=== PATIENT | male | born 1950 | race Caucasian/White ===

== ENCOUNTER 2016-05-13 09:54 | Day surgery (SDC) | payer OTHER ==
[~2016-05-13] VITALS: Ht 180.3 cm; Wt 109.1 kg
[~2016-05-13 09:54] MED LIST: AEROBID-M AEROSO7 GM; CARDIZEM CD360 MG PO; FLUNISOLIDE NASAL NASAL; LANOXIN125 MCG PO; LISINOPRIL10 MG PO; LOTREL 5/10 MG1 CAP PO; MEDROL DOSE PACK4 MG; METAMUCIL FIB1 WAFER PO; NASONEX NASAL S17 GM NS; NEURONTIN600 MG PO; PROBIOTIC1 EAC1 PO; PROTONIX40 MG PO; QUESTRAN LIG1 PACKET PO; SYNTHROID75 MCG PO; TRANDATE200 MG PO; VIAGRA PO; VIAGRA25 MG PO; VITAMIN D31000 UNIT PO; XARELTO20 MG PO; ZYLOPRIM300 MG PO; ZYRTEC10 MG; ZYRTEC10 MG PO
[2016-05-13] MEDS ORDERED: OXYBUTYNIN CHLOR5 MG PO (10:43)
[2016-05-13] MEDS ORDERED: HYDROCHLOROTH12.5 M1 PO (10:44)
[2016-05-13 10:49] VITALS: BP 146/74; Ht 180.3 cm; Wt 109.1 kg
[2016-05-13 11:17] LABS: BASOPHILS 0.3 % (0.0-2.0); EOSINOPHILS 2.6 % (0-7); HEMATOCRIT 36.9 % (42.0-54.0); HEMOGLOBIN 13.1 g/dL (13.5-17.5); IMMATURE GRANULOCYTES 1.1 % (0-5); MCH 36.6 pg (26.0-34.0); MCHC 35.5 g/dL (31.0-37.0); MCV 103.1 fL (80.0-100.0); MEAN PLATELET VOLUME 9.5 fL (7.4-10.4); MONOCYTES 26.1 % (2-11); NEUTROPHILS 52.9 % (40-80); PLATELET COUNT 131 10x3/uL (130-400); RBC 3.58 10x6/uL (4.20-6.10); RDW 12.6 % (11.5-14.5); WBC 3.5 10x3/uL (4.8-10.8)
[2016-05-13 11:32] LABS: ANION GAP 15.8 mmol/L (8-16); CALCIUM 9.3 mg/dL (8.5-10.1); CARBON DIOXIDE 27.3 mmol/L (21.0-32.0); CREATININE - SERUM 1.1 mg/dL (0.6-1.3); POTASSIUM - SERUM 4.1 mmol/L (3.5-5.1)
--- NOTE | 2016-05-13 14:35 | NUR ---
5697 DC INSTS. REVIEWED VOICED UNDERSTANDING, RELEASED IN WC WITH ESCORT.
--- NOTE | 2016-06-13 09:40 | OP ---
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 Duodenal bulbar polyp, 6 x 6 mm. PROCEDURE: 1. Esophagogastroduodenoscopy with cold endoscopic biopsies. 2. Duodenal bulbar polypectomy, hot. SURGEON: Jorge Bynum MD AIRLINE TICKET AGENT: None. BLOOD LOSS: Minimal. ANESTHESIA: IV sedation. COMPLICATIONS: None. The risks, possible complications and alternatives to procedure were explained to the patient. He elects to proceed. The discussion specifically included, but was not limited to, bleeding requiring emergency reoperation, infection, endoscopic perforation and possible need for additional surveillance procedures in the future. ENDOSCOPIC COURSE: The patient was conveyed to the endoscopy suite electively on 05/13/2016. IV sedation was induced by the anesthesia staff. A bite block was inserted. A gastroscope was inserted into the mouth. It was advanced easily into the hypopharynx. The esophagus was easily intubated as were the stomach and duodenum. In the duodenal bulb, I noted a polyp. This was grasped with the hot biopsy forceps. The bulbar polyp was removed in its entirety. I then performed numerous gastric biopsies in all portions of the stomach. As the patient has been on Xarelto after performing the cold endoscopic biopsies. I then took the hot probe and cauterized any bleeding areas. There was no further bleeding. The endoscope was withdrawn under direct vision. I will see the patient in my office in 2-3 weeks to discuss the results of his biopsies. TRANSINT:[id number] Voice Confirmation ID: [id number] DOCUMENT ID: [id number] OPERATIVE REPORT [id number] AZUCENAJORGE RIZO MD at 0940 CC: JOSE JESUS MD and ESCOBAR URRUTIA MD [id number] DICTATION DATE: 05/13/16 1218 MERCHANT MARINER: 05/13/162052 [facility] 05/13/16 [facility] [address] [place], [place] [id number]
--- NOTE | 2016-06-13 09:40 | HP ---
PATIENT: SAÚL ZENG MEDICAL RECORD: [id number] ACCOUNT: [id number] LOCATION:[facility] : 50 ADMISSION DATE: 05/13/16 HISTORY AND PHYSICAL EXAMINATION CHIEF COMPLAINT: History of gastric lymphoma. HISTORY OF PRESENT ILLNESS: The patient is to undergo a surveillance upper endoscopy with multiple gastric biopsies, which will be random gastric biopsies to make sure that his gastric lymphoma has not recurred. His gastric lymphoma was treated with chemotherapy. He has had no abdominal pain. He has been on Xarelto. He took Xarelto yesterday. His facility manager histology is Dr. Craven. PAST MEDICAL AND SURGICAL HISTORY: History of atrial fibrillation, hypertension, hypothyroidism, on replacement therapy, also history of gout. History of colon resection by Dr. Ko. SOCIAL HISTORY: Nonsmoker. ALLERGIES: No known drug allergies. HOME MEDICATIONS: Digoxin, Cardizem, lisinopril, hydrochlorothiazide, Synthroid, Ditropan and Zyloprim. REVIEW OF SYSTEMS: Negative for diabetes. Negative for renal disease. Negative for hepatitis. Negative for arthritis. REVIEW OF SYSTEMS: Negative other than as is described above. PHYSICAL EXAMINATION: GENERAL: The patient does not appear acutely ill. He does not appear chronically ill. HEENT: No scleral icterus. CARDIOVASCULAR: Regular rhythm. PULMONARY: Nonlabored. ABDOMEN: Nontender. EXTREMITIES: No peripheral cyanosis. IMPRESSION: History of gastric lymphoma. PLAN: Surveillance upper endoscopy with multiple gastric biopsies. TRANSINT:[id number] Voice Confirmation ID: [id number] DOCUMENT ID: [id number] JORGE BYNUM MD at 0940 CC: OJSE JESUS MD, ESCOBAR URRUTIA MD and EDDA CRAVEN M.D.,[id number] DICTATION DATE: 05/13/16 1131 FARM MACHINERY MECHANIC: 05/13/16 1217 [facility] 05/13/16 [place] [id number] [place] [id number]
== END 2016-05-13 13:35 | disposition home or self-care (01) ==
LOC: D.OPS 09:54
PROVIDERS: Anesthesiology
DX: D3A.010 Benign carcinoid tumor of the duodenum (principal); I48.91 Unspecified atrial fibrillation; Z79.01 Long term (current) use of anticoagulants; I10 Essential (primary) hypertension; E03.9 Hypothyroidism, unspecified; M10.9 Gout, unspecified; Z79.899 Other long term (current) drug therapy

== ENCOUNTER 2016-10-28 08:23 | Day surgery (SDC) | payer OTHER ==
[~2016-10-28] VITALS: Ht 180.3 cm; Wt 104.5 kg
[~2016-10-28 08:23] MED LIST changes: +HYDROCHLOROTH12.5 M1 PO; -LISINOPRIL10 MG PO; +OXYBUTYNIN CHLOR5 MG PO; +PRINIVIL20 MG PO
[2016-10-28 09:24] LABS: BASOPHILS 0.2 % (0-2); EOSINOPHILS 0.3 % (0-7); HEMATOCRIT 28.7 % (42.0-54.0); HEMOGLOBIN 10.3 g/dL (13.5-17.5); IMMATURE GRANULOCYTES 1.4 % (0-5); LYMPHOCYTES 14.6 % (15-50); MCH 35.2 pg (26.0-34.0); MCHC 35.9 g/dL (31.0-37.0); MEAN PLATELET VOLUME 8.2 fL (7.4-10.4); MONOCYTES 12.8 % (2-11); NEUTROPHILS 70.7 % (40-80); RBC 2.93 10x6/uL (4.20-6.10); WBC 5.8 10x3/uL (4.8-10.8)
[2016-10-28] MEDS ORDERED: VOLTAREN100 GM TOPICAL (09:26)
[2016-10-28 09:27] LABS: PLATELET COUNT 200 10x3/uL (130-400)
[2016-10-28 09:36] LABS: ANION GAP 17.3 mmol/L (8-16); CALCIUM 9.5 mg/dL (8.5-10.1); CARBON DIOXIDE 26.2 mmol/L (21.0-32.0); CREATININE - SERUM 1.6 mg/dL (0.6-1.3); POTASSIUM - SERUM 3.5 mmol/L (3.5-5.1)
[2016-10-28 09:37] VITALS: BP 134/75; Ht 180.3 cm; Wt 104.5 kg
--- NOTE | 2016-10-28 14:12 | NUR ---
1345-RECBrant FROM GI LAB, DR BYNUM IN TO REPORT FINDINGS TO PATIENT AND . 1400-FULL LIQUIDS SERVED.
--- NOTE | 2016-10-28 17:00 | NUR ---
1445-D/C HOME VIA WHEELCHAIR WITH TO [facility].
--- NOTE | 2016-10-31 11:49 | OP ---
PATIENT NAME: SAÚL ZENG MEDICAL RECORD: [id number] :50 LOCATION:D.OPS ADMISSION DATE: SURGEON: JORGE BYNUM MD DATE OF OPERATION: 10/28/2016 PREOPERATIVE DIAGNOSES: 1. History of gastric lymphoma. 2. History of duodenal carcinoid. 3. Hematochezia. 4. History of colon polyps. 5. History of colon resection. POSTOPERATIVE DIAGNOSES: 1. History of gastric lymphoma. 2. History of duodenal carcinoid. 3. Hematochezia. 4. History of colon polyps. 5. History of colon resection. 6. Polypoid lesion at the junction of the second and third portions of the duodenum. 7. Polypoid lesion, 9 mm, at the duodenal bulb, perhaps regrowth of the carcinoid. 8. Normal-appearing rectal anastomosis. 9. No new colon or rectal polyps. PROCEDURES: 1. Esophagogastroduodenoscopy with multiple gastric biopsies to rule out gastric lymphoma. 2. Duodenal polypectomies times 2. 3. Total colonoscopy to cecum. SURGEON: Jorge Bynum MD. MULTIPLE GAMES DEALER: None. BLOOD LOSS: Minimal. ANESTHESIA: IV sedation. COMPLICATIONS: None. The risks, possible complications and alternatives to the procedure were explained to the patient. He elects to proceed. ENDOSCOPIC COURSE: The patient was conveyed to the endoscopy suite electively on 10/28/2016. A bite block was inserted. A gastroscope was inserted into the mouth. It was advanced easily into the hypopharynx. The esophagus was easily intubated as were the stomach and duodenum. At the junction of the second and third portions of the duodenum, I performed a hot biopsy forceps polypectomy of a polypoid lesion. I then withdrew into the duodenal bulb. Another polypoid lesion was noted and it was removed in its entirety utilizing hot biopsy forceps polypectomy technique. I then withdrew into the stomach. Numerous cold endoscopic biopsies were performed throughout the entire stomach. I noted no evidence of regrowth of the gastric lymphoma. The endoscope was then withdrawn under direct vision. OPERATIVE REPORT [id number] SAÚL ZENG The patient was turned 180 degrees and placed in the Miles position. A digital rectal examination was performed. A colonoscope was inserted through the anus. It was advanced to the anastomosis. I intubated the anastomosis. I irrigated and aspirated extensively. I noted no evidence of any polypoid lesions or masses. The anastomosis did not contain any growth. The endoscope was then withdrawn under direct vision. Our plan for his next colonoscopy to take place in 3 years due to history of colon polyps. I noted no source of bleeding. We are going to wait for the results of the biopsies of the stomach and duodenum before determining when his next surveillance upper endoscopy should take place. TRANSINT:[id number] Voice Confirmation ID: [id number] DOCUMENT ID: [id number] JORGE BYNUM MD at 1149 CC: JOSE JESUS MD and ESCOBAR URRUTIA MD [id number] DICTATION DATE: 10/28/16 1346 COMPOSITION PROFESSOR: 10/28/16 1514 [facility] 10/28/16 [place] [address] [place] [address]
--- NOTE | 2016-10-31 11:49 | HP ---
PATIENT: SAÚL ZENG MEDICAL RECORD: [id number] ACCOUNT: [id number] LOCATION:[facility]ernardo[facility] : 50 ADMISSION DATE: 10/28/16 HISTORY AND PHYSICAL EXAMINATION PREOPERATIVE DIAGNOSIS: History of gastric lymphoma. HISTORY OF PRESENT ILLNESS: The patient has a history of gastric lymphoma. He is to undergo surveillance upper endoscopies with multiple biopsies to ensure there has not been a recurrence of the gastric lymphoma. 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 He has had a history of colon polyps. He has been having some rectal bleeding as well. He is to undergo EGD and colonoscopy. The risks, possible complications and alternatives to procedure were explained to the patient. He elects to proceed. PAST MEDICAL AND SURGICAL HISTORY: He had a URI 2 weeks ago, hypertension, atrial fibrillation, history of gastric lymphoma and sleep apnea. HOME MEDICINES: Include lisinopril, hydrochlorothiazide, Synthroid, Zyrtec, Xarelto, Protonix and Cardizem. PHYSICAL EXAMINATION: GENERAL: The patient does not appear acutely ill. He does not appear chronically ill. VITAL SIGNS: Reviewed. HEAD: External ears appear normal. EYES: Extraocular movements are intact. NECK: Trachea is midline. CHEST: No intercostal retractions. PULMONARY: Nonlabored, no stridor. ABDOMEN: Nontender. IMPRESSION: 1. History of gastric lymphoma. 2. History of carcinoid tumor of the duodenum. 3. Hematochezia. 4. History of colon polyps. PLAN: EGD and colonoscopy. TRANSINT:[id number] Voice Confirmation ID: [id number] DOCUMENT ID: [id number] JORGE BYNUM MD at 1149 CC: JOSE JESUS MD and ESCOBAR URRUTIA MD [id number] DICTATION DATE: 10/28/16 1302 MOUNTER SAXOPHONES: 10/28/[address] [facility] 10/28/16 [place] [id number] [place] [address]
== END 2016-10-28 14:45 | disposition home or self-care (01) ==
LOC: D.OPS 08:23
PROVIDERS: Anesthesiology
DX: K31.7 Polyp of stomach and duodenum (principal); K29.50 Unspecified chronic gastritis without bleeding; K29.80 Duodenitis without bleeding; Z85.72 Personal history of non-Hodgkin lymphomas; Z86.010 Personal history of colon polyps; Z90.49 Acquired absence of other specified parts of digestive tract; I10 Essential (primary) hypertension; I48.91 Unspecified atrial fibrillation; G47.30 Sleep apnea, unspecified; Z79.01 Long term (current) use of anticoagulants; Z79.899 Other long term (current) drug therapy; Z01.812 Encounter for preprocedural laboratory examination

== ENCOUNTER 2016-12-18 07:22 | Outpatient (CLI) | payer OTHER ==
[~2016-12-18 07:22] MED LIST changes: +VOLTAREN100 GM TOPICAL
[2016-12-18 08:19] VITALS: BP 113/74; BMI 31.8
--- NOTE | 2016-12-18 14:48 | NUR ---
LEFT CHEST INFUSAPORT FLUSHED WITH NS AND HEPARIN. PORT DEACCESSED, PT TOLERATED. MCCARTHY NEEDLE INTACT. SCANT BLOOD AT SITE AFTER NEEDLE REMOVAL, BLOTTED, NO DRESSING NEEDED.
== END 2016-12-18 15:00 | disposition home or self-care (01) ==
LOC: D.OPS 07:22
DX: D64.9 Anemia, unspecified (principal)

== ENCOUNTER 2017-06-16 05:43 | Day surgery (SDC) | payer OTHER ==
[~2017-06-16] VITALS: Ht 180.3 cm; Wt 101.4 kg
--- NOTE | ~2017-06-16 | OP ---
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 PROCEDURE: Esophagogastroduodenoscopy with multiple random gastric biopsies. SURGEON: Jorge Bynum MD MARBLE RUBBER: None. BLOOD LOSS: Minimal. ANESTHESIA: IV sedation. COMPLICATIONS: None. The risks, possible complications, and alternatives to the procedure were explained to the patient. He elects to proceed. ENDOSCOPIC COURSE: The patient was conveyed to the endoscopy suite electively on 06/16/2017. IV sedation was induced by the anesthesia staff. A bite block was inserted. A gastroscope was inserted into the mouth. It was advanced easily into the hypopharynx. The esophagus was easily intubated as were the stomach and duodenum. Upon withdrawal, retroflexed and angulus views were obtained. Multiple random gastric biopsies were obtained in all areas of the stomach. The endoscope was then withdrawn under direct vision. I will see him in my office in 2-3 weeks. I will plan for his next surveillance upper endoscopy with biopsies to take place in 6 months. TRANSINT:[id number] Voice Confirmation ID: [id number] DOCUMENT ID: [id number] JORGE BYNUM MD at 1518 CC: JOSE JESUS MD, ESCOBAR URRUTIA MD and EDDA WILLIAMSON [id number] DICTATION DATE: 06/16/17 1044 TIE MAKER: 06/16/17 1058 [facility] 06/16/17 [place] [address] [place] [address]
--- NOTE | ~2017-06-16 | HP ---
PATIENT: SAÚL ZENG MEDICAL RECORD: [id number] ACCOUNT: [id number] LOCATION:[facility] : 50 ADMISSION DATE: 06/16/17 HISTORY AND PHYSICAL EXAMINATION CHIEF COMPLAINT: History of gastric lymphoma. HISTORY OF PRESENT ILLNESS: The patient has a history of gastric lymphoma. He is here for surveillance upper endoscopies. His oncologist is Dr. Jesus. He also has a history of colon polyps. He is too early for surveillance colonoscopy. We are performing upper endoscopies with biopsies every 6 months due to his history of gastric lymphoma. PAST MEDICAL AND SURGICAL HISTORY: Hypertension; atrial fibrillation; history of gastric lymphoma; history of sleep apnea; renal disease; hypothyroidism, on replacement therapy; allergic rhinitis; and gout. HOME MEDICATIONS: He is no longer on Xarelto. Cardizem, hydrochlorothiazide, digoxin, lisinopril, Protonix, Synthroid, allopurinol, and Zyrtec. ALLERGIES: No known drug allergies. PHYSICAL EXAMINATION: GENERAL: The patient does not appear acutely ill. He does not appear chronically ill. VITAL SIGNS: Reviewed. EARS: External ears appear normal. EYES: Extraocular movements are intact. NECK: Trachea is midline. CHEST: No intercostal retractions. PULMONARY: Nonlabored, no stridor. ABDOMEN: No peritonitis with movement. IMPRESSION: History of gastric lymphoma. PLAN: Will be surveillance upper endoscopy with biopsies. TRANSINT:[id number] Voice Confirmation ID: [id number] DOCUMENT ID: [id number] JORGE BYNUM MD at 1518 CC: JOSE JESUS MD and EDDA WILLIAMSON [id number] DICTATION DATE: 06/16/17 1014 SCIENTIST/ENGINEER: 06/16/17 1036 [facility] 06/16/17 [place] [id number]
[2017-06-16 06:15] LABS: HEMATOCRIT 38.1 % (42.0-54.0); MCH 35.8 pg (26.0-34.0); MCHC 36.7 g/dL (31.0-37.0); MCV 97.4 fL (80.0-100.0); MEAN PLATELET VOLUME 8.5 fL (7.4-10.4); RBC 3.91 10x6/uL (4.20-6.10); RDW 14.3 % (11.5-14.5); WBC 3.6 10x3/uL (4.8-10.8)
[2017-06-16 07:29] VITALS: BP 134/88; Ht 180.3 cm; Wt 101.4 kg
== END 2017-06-16 11:27 | disposition home or self-care (01) ==
LOC: D.OPS 05:43
PROVIDERS: Anesthesiology
DX: Z85.72 Personal history of non-Hodgkin lymphomas (principal); Z85.9 Personal history of malignant neoplasm, unspecified; Z01.812 Encounter for preprocedural laboratory examination; I10 Essential (primary) hypertension; E03.9 Hypothyroidism, unspecified; I48.91 Unspecified atrial fibrillation

== ENCOUNTER 2017-12-08 08:30 | Day surgery (SDC) | payer OTHER ==
[~2017-12-08] VITALS: Ht 180.3 cm; Wt 95.5 kg
--- NOTE | ~2017-12-08 | OP ---
PATIENT NAME: SAÚL ZENG MEDICAL RECORD: [id number] :50 LOCATION:D.[facility] ADMISSION DATE: SURGEON: JORGE BYNUM MD DATE OF OPERATION: 12/08/2017 PREOPERATIVE DIAGNOSES: History of gastric lymphoma. POSTOPERATIVE DIAGNOSES: History of gastric lymphoma. PROCEDURE: EGD with multiple random gastric biopsies as well as distal esophageal biopsies to rule out Blair's. SURGEON: Jorge Bynum MD OFFAL SEPARATOR: None. BLOOD LOSS: Minimal. ANESTHESIA: IV sedation. COMPLICATIONS: None. The risks, possible complications, and alternatives to procedure were explained to the patient. He elects to proceed. OPERATIVE COURSE: The patient was conveyed to endoscopy suite electively on 12/08/2017. A bite block was inserted. The IV sedation was induced by the anesthesia staff. A gastroscope was inserted into the mouth. It was advanced easily into the hypopharynx. The esophagus was easily intubated as were the stomach and duodenum. Upon withdrawal, retroflexed and angulus views were obtained. Antral biopsies were obtained. Multiple random gastric biopsies were obtained in the cardia, fundus as well as the antrum. Distal esophageal biopsies were obtained as well. The endoscope was then withdrawn under direct vision. I will see the patient in my office in 2-3 weeks. He was to have a colonoscopy today as well, but was not prepped for it. I will have him call Dr. Jesus and see when he would like Mr. Zeng to have his next surveillance upper endoscopy. TRANSINT:[id number] Voice Confirmation ID: [id number] DOCUMENT ID: [id number] JORGE BYNUM MD at 1327 CC: JOSE JESUS MD and ESCOBAR URRUTIA MD [id number] DICTATION DATE: 12/08/17 1158 CASINO FLOOR RUNNER: 12/08/17 1238 [facility] 12/08/17 [place] [place] [address]
--- NOTE | ~2017-12-08 | HP ---
PATIENT: SAÚL ZENG MEDICAL RECORD: [id number] ACCOUNT: [id number] LOCATION:.[facility] : 50 ADMISSION DATE: 12/08/17 PCP: ESCOBAR URRUTIA MD HISTORY AND PHYSICAL EXAMINATION CHIEF COMPLAINT: History of gastric lymphoma. HISTORY OF PRESENT ILLNESS: The patient had a history of gastric lymphoma. He is here for EGD with multiple gastric biopsies. The risks, possible complications and alternatives to the procedure were explained to the patient. He elects to proceed. ALLERGIES: No known drug allergies. MEDICATIONS: Please see the nursing list. PAST MEDICAL AND SURGICAL HISTORY: Hypertension, hypothyroidism on replacement therapy, history of gastric lymphoma, history of sinus surgery, history of colon resection, history of cholecystectomy, history of partial knee replacements bilaterally. He is somewhat hard of hearing. PHYSICAL EXAMINATION: GENERAL: The patient does not appear acutely ill. He does not appear chronically ill. VITAL SIGNS: Reviewed. EARS: External ears appear normal. EYES: Extraocular movements are intact. NECK: Trachea is midline. CHEST: No intercostal retractions. PULMONARY: Nonlabored, no stridor. IMPRESSION: History of gastric lymphoma. PLAN: EGD with biopsies. TRANSINT:[id number] Voice Confirmation ID: [id number] DOCUMENT ID: [id number] JORGE BYNUM MD at 1201 CC: JOSE JESUS MD and ESCOBAR URRUTIA MD [id number] DICTATION DATE: 12/08/17 1131 MECHATRONICS TECHNOLOGIST: 12/08/17 1140 [facility] [address] [place] [address]
[2017-12-08 08:51] LABS: BASOPHILS 0.3 % (0-2); EOSINOPHILS 3.5 % (0-7); HEMATOCRIT 39.7 % (42.0-54.0); HEMOGLOBIN 14.5 g/dL (13.5-17.5); IMMATURE GRANULOCYTES 0.9 % (0-5); LYMPHOCYTES 20.7 % (15-50); MCH 37.4 pg (26.0-34.0); MCHC 36.5 g/dL (31.0-37.0); MCV 102.3 fL (80.0-100.0); MEAN PLATELET VOLUME 9.2 fL (7.4-10.4); MONOCYTES 18.4 % (2-11); NEUTROPHILS 56.2 % (40-80); RBC 3.88 10x6/uL (4.20-6.10); RDW 12.7 % (11.5-14.5); WBC 3.5 10x3/uL (4.8-10.8)
[2017-12-08 08:55] LABS: PLATELET COUNT 146 10x3/uL (130-400)
[2017-12-08 09:01] LABS: CALC OSMOLALITY 265 mosm/kg (275-300); CALCIUM 9.7 mg/dL (8.5-10.1); CARBON DIOXIDE 28.5 mmol/L (21.0-32.0); CHLORIDE - SERUM 96 mmol/L (98-107); GLUCOSE 86 mg/dL (74-106); POTASSIUM - SERUM 4.2 mmol/L (3.5-5.1); SODIUM 134 mmol/L (136-145); UREA NITROGEN 11 mg/dL (7-18); eGFR NON AFRICAN AMERICAN 79 mL/min (90-120)
[2017-12-08] MEDS ORDERED: BAYER CHEWABLE81 MG PO (09:24)
[2017-12-08] MEDS ORDERED: MULTI-DAY VITAM1 TAB PO (09:25)
[2017-12-08] MEDS ORDERED: NORITATE60 GM TP (09:25)
[2017-12-08] MEDS ORDERED: OXYBUTYNIN CHLOR5 MG PO (09:25)
[2017-12-08] MEDS ORDERED: VIBRAMYCIN 100100 MG PO (09:26)
[2017-12-08 09:34] VITALS: BP 143/108; Ht 180.3 cm; Wt 95.5 kg
== END 2017-12-08 13:04 | disposition home or self-care (01) ==
LOC: D.OPS 08:30
PROVIDERS: Anesthesiology
DX: Z85.72 Personal history of non-Hodgkin lymphomas (principal); I10 Essential (primary) hypertension; E03.9 Hypothyroidism, unspecified; Z96.653 Presence of artificial knee joint, bilateral; Z01.812 Encounter for preprocedural laboratory examination

== ENCOUNTER 2018-06-08 10:47 | Day surgery (SDC) | payer OTHER ==
[~2018-06-08] VITALS: Ht 180.3 cm; Wt 95.5 kg
[~2018-06-08 10:47] MED LIST changes: +BAYER CHEWABLE81 MG PO; +MULTI-DAY VITAM1 TAB PO; +NORITATE60 GM TP; +VIBRAMYCIN 100100 MG PO
[2018-06-08 11:21] LABS: HEMATOCRIT 34.5 % (42.0-54.0); HEMOGLOBIN 11.6 g/dL (13.5-17.5); MCH 34.1 pg (26.0-34.0); MCHC 33.6 g/dL (31.0-37.0); MCV 101.5 fL (80.0-100.0); MEAN PLATELET VOLUME 8.7 fL (7.4-10.4); RBC 3.4 10x6/uL (4.20-6.10); RDW 13.3 % (11.5-14.5); WBC 4.8 10x3/uL (4.8-10.8)
[2018-06-08 11:47] LABS: APTT 28.3 SECONDS (22.8-39.4); INR 1.04 (0.85-1.17); PROTIME 13.1 SECONDS (11.6-15.0)
[2018-06-08] MEDS ORDERED: ELIQUIS5 MG PO (12:09)
[2018-06-08 12:14] VITALS: BP 140/86; Ht 180.3 cm; Wt 95.5 kg
--- NOTE | 2018-06-08 14:30 | NUR ---
PT IV REMOVED AT THIS TIME, INTACT, NO REDNESS OR SWELLING NOTED AT SITE. PT DC INSTRUCTIONS REVIEWED AT THIS TIME, PT VERBALIED UNDERSTANDING.
--- NOTE | 2018-06-08 14:47 | NUR ---
PT LEAVING OPS AT THIS TIME, VSS NAD NOTED.
--- NOTE | 2018-06-09 14:50 | OP ---
PATIENT NAME: SAÚL ZENG MEDICAL RECORD: [id number] :50 LOCATION:.[facility] ADMISSION DATE: SURGEON: JORGE BYNUM MD DATE OF OPERATION: 06/08/2018 PREOPERATIVE DIAGNOSIS: History of gastric lymphoma, in need of surveillance. POSTOPERATIVE DIAGNOSES: 1. History of gastric lymphoma, in need of surveillance. 2. Prepyloric gastritis, moderate. PROCEDURE: Esophagogastroduodenoscopy with multiple gastric biopsies. SURGEON: Jorge Bynum MD HYDRAULIC ENGINEER: None. BLOOD LOSS: Minimal. ANESTHESIA: IV sedation. COMPLICATIONS: None. Due to the fact that the patient is currently on Eliquis, I performed hot biopsies in order to prevent bleeding from occurring. Upon entering the stomach, there were some flecks of blood. I am uncertain where the bleeding was coming from. He states he has got another month's worth of Eliquis to take. DESCRIPTION OF PROCEDURE: The patient was conveyed to the endoscopy suite electively on 06/08/2018. IV sedation was induced by the anesthesia staff. A bite block was inserted. A gastroscope was inserted into the mouth. It was advanced easily into the hypopharynx. The esophagus was easily intubated as were the stomach and the duodenum. Upon withdrawal, retroflexed and angulus views were obtained. Multiple random hot biopsies were performed. The endoscope was then withdrawn under direct vision. I will see the patient in my office in 2-3 weeks. I will plan for his next surveillance gastroscopy to take place in 6 months. TRANSINT:[id number] Voice Confirmation ID: [id number] DOCUMENT ID: [id number] JORGE BYNUM MD at 1450 CC: JOSE JESUS MD and ESCOBAR URRUTIA MD [phone] DICTATION DATE: 06/08/18 1358 LINER ASSEMBLER: 06/08/18 2856 [facility] 06/08/18 [facility] [address] [place] [id number]
--- NOTE | 2018-06-09 14:51 | HP ---
PATIENT: SAÚL ZENG MEDICAL RECORD: [id number] ACCOUNT: [id number] LOCATION:[facility] : 50 ADMISSION DATE: 06/08/18 PCP: ESCOBAR URRUTIA MD HISTORY AND PHYSICAL EXAMINATION CHIEF COMPLAINT: History of gastric lymphoma. HISTORY OF PRESENT ILLNESS: The patient is here to undergo random gastric biopsies due to history of gastric lymphoma. ALLERGIES: No known drug allergies. HOME MEDICATIONS: Please see the nursing list. The patient is currently on Eliquis. SOCIAL HISTORY: Nonsmoker. 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 PHYSICAL EXAMINATION: GENERAL: The patient does not appear acutely ill. He does not appear chronically ill. VITAL SIGNS: Reviewed. EARS: External ears appear normal. EYES: Extraocular movements are intact. NECK: Trachea is midline. CHEST: No intercostal retractions. PULMONARY: Nonlabored, no stridor. IMPRESSION: History of gastric lymphoma, on Eliquis. PLAN: Multiple gastric biopsies. TRANSINT:[id number] Voice Confirmation ID: [id number] DOCUMENT ID: [id number] cc: [facility] Smith MD at 1451 CC: JOSE JESUS MD and ESCOBAR URRUTIA MD [phone] DICTATION DATE: 06/08/18 1331 MAGAZINE GRINDER LOADER: 06/08/[address] [facility] 06/08/18 [facility] [address] [place] [id number]
== END 2018-06-08 14:47 | disposition home or self-care (01) ==
LOC: D.OPS 10:47
PROVIDERS: Anesthesiology; ATTEND Surgery
DX: K29.50 Unspecified chronic gastritis without bleeding (principal); Z79.01 Long term (current) use of anticoagulants; Z85.72 Personal history of non-Hodgkin lymphomas; Z01.812 Encounter for preprocedural laboratory examination

== ENCOUNTER 2018-06-15 10:08 | Inpatient (IN) | payer OTHER ==
[~2018-06-15] VITALS: Ht 180.3 cm; Wt 99.8 kg
[2018-06-15] VITALS (16 sets, daily range): BP systolic 96–139; BP diastolic 57–93; BMI 30.7
[~2018-06-15 10:08] MED LIST changes: +ELIQUIS5 MG PO
[2018-06-15] MEDS ORDERED: PREVALITE POWD231 GM PO (10:24)
[2018-06-15] MEDS ORDERED: COREG6.25 MG PO (10:24)
[2018-06-15] MEDS ORDERED: FERROUS SULFAT325 MG PO (10:25)
[2018-06-15] MEDS ORDERED: LIPITOR40 MG PO (10:26)
[2018-06-15] MEDS ORDERED: VIBRAMYCIN 100100 MG PO (10:27)
[2018-06-15] MEDS ORDERED: MYRBETRIQ25 MG PO (10:28)
[2018-06-15] MEDS ORDERED: ZYRTEC10 MG PO (10:30)
[2018-06-15] MEDS ORDERED: FLUTICASONE PRO16 GM NASAL (10:30)
[2018-06-15] MEDS ORDERED: CYCLOBENZAPRINE10 MG PO (10:30)
[2018-06-15 11:46] LABS: ALBUMIN 3.1 g/dL (3.4-5.0); ALKALINE PHOSPHATASE 50 U/L (46-116); ALT (SGPT) 21 U/L (10-68); BILIRUBIN - TOTAL 0.27 mg/dL (0.2-1.3); CALC OSMOLALITY 299 mosm/kg (275-300); CALCIUM 9.1 mg/dL (8.5-10.1); CHLORIDE - SERUM 103 mmol/L (98-107); CREATININE - SERUM 0.9 mg/dL (0.6-1.3); POTASSIUM - SERUM 4.4 mmol/L (3.5-5.1); PROTEIN - SERUM 5.6 g/dL (6.4-8.2); SODIUM 139 mmol/L (136-145); UREA NITROGEN 65 mg/dL (7-18); eGFR NON AFRICAN AMERICAN 89 mL/min (90-120)
[2018-06-15 11:47] LABS: GLUCOSE 150 mg/dL (74-106)
[2018-06-15 11:50] LABS: BASOPHILS 0.2 % (0-2); EOSINOPHILS 0.7 % (0-7); IMMATURE GRANULOCYTES 0.4 % (0-5); LYMPHOCYTES 9.5 % (15-50); MCH 33.7 pg (26.0-34.0); MCHC 33.5 g/dL (31.0-37.0); MCV 100.6 fL (80.0-100.0); MEAN PLATELET VOLUME 8.9 fL (7.4-10.4); MONOCYTES 11.6 % (2-11); NEUTROPHILS 77.6 % (40-80); PLATELET COUNT 172 10x3/uL (130-400); RDW 13.4 % (11.5-14.5); WBC 5.6 10x3/uL (4.8-10.8)
[2018-06-15 11:52] LABS: APTT 29.4 SECONDS (22.8-39.4); HEMATOCRIT 18.2 % (42.0-54.0); HEMOGLOBIN 6.1 g/dL (13.5-17.5); INR 1.28 (0.85-1.17); PROTIME 15.4 SECONDS (11.6-15.0); RBC 1.81 10x6/uL (4.20-6.10)
[2018-06-15 11:58] LABS: CKMB 1.6 U/L (0.0-3.6); CREATINE KINASE 85 UL (21-232); MAGNESIUM - SERUM 1.5 mg/dL (1.8-2.4); TROPONIN-I 0.038 ng/mL (0.000-0.060)
[2018-06-15 14:12] LABS: APPEARANCE CLEAR (CLEAR); BILIRUBIN NEGATIVE (NEGATIVE); COLOR YELLOW (YELLOW); GLUCOSE NEGATIVE (NEGATIVE); KETONE NEGATIVE (NEGATIVE); NITRITE NEGATIVE (NEGATIVE); PROTEIN NEGATIVE (NEGATIVE); UROBILINOGEN NORMAL (NORMAL)
[2018-06-15] MEDS ORDERED: COREG12.5 MG PO (19:11)
[2018-06-15] MEDS ORDERED: ZYLOPRIM100 MG PO (19:13)
[2018-06-15 19:50] LABS: HEMATOCRIT 23.4 % (42.0-54.0); HEMOGLOBIN 7.9 g/dL (13.5-17.5)
[2018-06-16] VITALS (17 sets, daily range): BP systolic 94–141; BP diastolic 58–88; Ht 180.3 cm; Wt 99.8 kg
[2018-06-16 01:25] LABS: HEMATOCRIT 25.4 % (42.0-54.0); HEMOGLOBIN 8.8 g/dL (13.5-17.5)
[2018-06-16 05:32] LABS: BASOPHILS 0.5 % (0-2); EOSINOPHILS 3.3 % (0-7); HEMATOCRIT 27.6 % (42.0-54.0); HEMOGLOBIN 9.4 g/dL (13.5-17.5); IMMATURE GRANULOCYTES 0.5 % (0-5); LYMPHOCYTES 18.4 % (15-50); MCH 31.5 pg (26.0-34.0); MCHC 34.1 g/dL (31.0-37.0); MEAN PLATELET VOLUME 8.6 fL (7.4-10.4); MONOCYTES 14.8 % (2-11); NEUTROPHILS 62.5 % (40-80); RDW 17.5 % (11.5-14.5); WBC 4.3 10x3/uL (4.8-10.8)
[2018-06-16 05:36] LABS: MCV 92.6 fL (80.0-100.0); PLATELET COUNT 127 10x3/uL (130-400); RBC 2.98 10x6/uL (4.20-6.10)
[2018-06-16 05:43] LABS: ALBUMIN 2.9 g/dL (3.4-5.0); ALKALINE PHOSPHATASE 51 U/L (46-116); ALT (SGPT) 20 U/L (10-68); BILIRUBIN - TOTAL 1.26 mg/dL (0.2-1.3); CALCIUM 8.2 mg/dL (8.5-10.1); CARBON DIOXIDE 28.2 mmol/L (21.0-32.0); CHLORIDE - SERUM 104 mmol/L (98-107); POTASSIUM - SERUM 3.9 mmol/L (3.5-5.1); PROTEIN - SERUM 5.5 g/dL (6.4-8.2); SODIUM 140 mmol/L (136-145); eGFR NON AFRICAN AMERICAN 79 mL/min (90-120)
[2018-06-16 05:54] LABS: CALC OSMOLALITY 289 mosm/kg (275-300); GLUCOSE 94 mg/dL (74-106); UREA NITROGEN 42 mg/dL (7-18)
--- NOTE | 2018-06-16 08:28 | HP ---
PATIENT: SAÚL ZENG MEDICAL RECORD: [id number] ACCOUNT: [id number] LOCATION:[facility] D2301 : 50 ADMISSION DATE: 06/15/18 PCP: ESCOBAR URRUTIA MD HISTORY AND PHYSICAL EXAMINATION DATE OF ADMISSION: 06/15/2018 CHIEF COMPLAINT: Syncope and melena. HISTORY OF PRESENT ILLNESS: This is a 68-year-old white male who had EGD and gastric biopsies by Dr. Brito a week ago from today. He has been on Eliquis since he had 2-vessel CABG and closure of left atrial appendage with a clip in March by Dr. Malagon in [place]. He is hopefully soon to get off of the Eliquis. The patient followed instructions prior to and post-procedure. He stopped the Eliquis 2 days before and did not take it for 2 days after the procedure. He said, at about 3 o'clock yesterday afternoon, he had a black stool and felt like he was going to pass out then. He caught himself and did okay. He had another couple of black stools last night. He had another one this morning and woke up on the floor. He came into the ER to be evaluated. His hemoglobin then was 6.1 and hematocrit 18. He is admitted for acute blood loss anemia, most likely post-procedure. PAST MEDICAL HISTORY: He has arthritis; hypertension; hyperlipidemia; hypothyroidism; history of prostate cancer and MALT lymphoma, followed by Dr. Ashraf, and he gets q. [address] Brito. He has paroxysmal atrial fibrillation and has coronary artery disease, followed by Dr. Craven. PAST SURGICAL HISTORY: He has had prostatectomy, cholecystectomy, and partial colectomy. He had a 2-vessel CABG, closure of left atrial appendage, and radiofrequency ablation of pathways for atrial fibrillation done on 03/24/[address] Malagon in [place]. ALLERGIES: None known. HOME MEDICATIONS: Include cetirizine 10 mg once a day, doxycycline 100 mg once a day for rosacea, Flexeril 10 mg p.r.n. muscle spasm, Eliquis 5 mg twice a day, iron sulfate 325 mg once a day, atorvastatin 40 mg once a day, carvedilol 12.5 mg twice a day, aspirin 81 mg once a day, Flonase nasal spray p.r.n., levothyroxine 75 mcg once a day, metronidazole cream apply p.r.n. rosacea, Myrbetriq 25 mg once a day for overactive bladder, vitamin D3 1000 units once a day, multivitamin once a day, and allopurinol 100 mg once a day. HABITS: Never smoked. Alcohol, he states he stopped drinking before his heart surgery. He admits to drinking some wine in the last couple of weeks. No illicit drug use. FAMILY HISTORY: Unknown. SOCIAL HISTORY: He is . He runs his own business. REVIEW OF SYSTEMS: GENERAL: No major weight changes. HEENT: He has occasional allergy problems. RESPIRATORY: No history of asthma or emphysema. CARDIAC: He has coronary artery disease, paroxysmal atrial fibrillation, recent HISTORY AND PHYSICAL [id number] SAÚL ZENG CABG, closure of left atrial appendage, and radiofrequency ablation of pathways for AFib. GASTROINTESTINAL: He has had history of MALT lymphoma, followed by Dr. Ashraf, and gets q. [address] Brito. He has a history of polyp in colon. He has had partial colectomy. GENITOURINARY: History of prostate cancer, status post prostatectomy. MUSCULOSKELETAL: Arthritic aches and pains. NEUROLOGIC: No migraines or seizures. PSYCHIATRIC: No melancholia or depression. PHYSICAL EXAMINATION: VITAL SIGNS: Temperature is afebrile, heart rate 84, respirations 16, blood pressure 129/77, and O2 sat 97%. GENERAL: He is awake and alert. He does not appear to be in acute distress at this time. HEENT: Grossly within normal limits. NECK: Supple. No JVD or bruit. HEART: Regular rate and rhythm. No murmur. LUNGS: Fairly clear. ABDOMEN: Soft, flat, and nontender. RECTAL: Not done in the ED. He had grossly heme-positive stool. EXTREMITIES: No edema. NEUROLOGIC: Intact. LABORATORY DATA: Urinalysis is normal. CBC with white count of 5600, hemoglobin 6.1, hematocrit 18.2, and MCV 100.6. INR 1.28. Basic metabolic panel is okay except BUN is 65, creatinine 0.9, and magnesium 1.5. Liver functions are all okay. DIAGNOSTIC DATA: EKG; normal sinus rhythm, rate 91. Chest x-ray shows no acute problems. CAT scan of the cervical spine shows degenerative changes. CAT scan of the head shows no acute problems. ASSESSMENT: 1. Acute blood loss anemia. 2. Long-term use of blood thinners. 3. History of MALT lymphoma, status post EGD and biopsy one week ago by Dr. Brito. 4. History of coronary artery disease with CABG on 03/24/2018. PLAN: He has been given a total of 2 units of packed red blood cells. He will have another CBC checked soon and we will transfuse per parameters. Dr. Brito has been consulted and has seen the patient. We will monitor overnight in the ICU. Further procedures as warranted. TRANSINT:[id number] Voice Confirmation ID: [id number] DOCUMENT ID: [id number] HISTORY AND PHYSICAL [id number] SAÚL ZENG WILLIAM MD at 0828 CC: [id number] DICTATION DATE: 06/15/181925 GIS SCIENTIST: 06/15/182017 ADM IN [facility] [address] [place] [address]
[2018-06-16 13:05] LABS: HEMATOCRIT 30.7 % (42.0-54.0); HEMOGLOBIN 10.3 g/dL (13.5-17.5)
--- NOTE | 2018-06-16 16:54 | MORECARE ---
CASE MANAGEMENT DISCHARGE SUMMARY PATIENT: SAÚL ZENG UNIT: [id number] ADM DATE: 06/15/18 AGE: 68 : 50 SEX: M ROOM/BED: D.2301 AUTHOR: SUMIT BARKLEY PHYSICIAN: REFERRING PHYSICIAN: ESCOBAR URRUTIA MD DATE OF SERVICE: 06/16/18 Discharge Plan Patient Name: SAÚL ZENG Facility: [facility]:[place] : 1950 Planned Disposition: Home Anticipated Discharge Date: Discharge Date: Expected LOS: Initial Reviewer: [email or web address] Initial Review Date: 06/16/2018 Generated: 06/16/18 5:54 pm Patient Name: SAÚL ZENG Page 61810 at 1654 All edits/amendments must be made on the electronic document DICTATION DATE: 06/16/181653 WASTE RECLAIMER: MACEY 06/16/181653 RPT#: [id number] DC DATE: STATUS: ADM IN [facility] [address] [place] [address] END OF REPORT
--- NOTE | 2018-06-16 17:03 | MORECARE ---
CASE MANAGEMENT DISCHARGE SUMMARY PATIENT: SAÚL ZENG UNIT: [id number] ADM DATE: 06/15/18 AGE: 68 : 50 SEX: M ROOM/BED: D.2301 AUTHOR: SUMIT BARKLEY PHYSICIAN: REFERRING PHYSICIAN: ESCOBAR URRUTIA MD DATE OF SERVICE: 06/16/18 Discharge Plan Patient Name: SAÚL ZENG Facility: [facility]:[place] : 1950 Planned Disposition: Home Anticipated Discharge Date: Discharge Date: Expected LOS: Initial Reviewer: [email or web address] Initial Review Date: 06/16/2018 Generated: 06/16/18 6:03 pm Comments DCP- Discharge Planning Updated by [email or web address]: Lisa Espinosa on 06/16/18 3:[address] Patient Name: SAÚL ZENG Admission Status: ER Accout number: [id number] Admission Date: 06-15-2018 : 1950 Admission Diagnosis: Attending: ESCOBAR URRUTIA Current LOS: 1 Anticipated DC Date: Planned Disposition: Home Primary Insurance: [employer] POS Discharge Planning Comments: CM met with patient and spouse (Krystal) at bedside after explaining CM role and obtaining verbal consent. Patient lives at home with his Krystal and plans to return there upon discharge. Patient feels this would be a safe discharge. CM discussed availability / needs of home health and medical equipment. Patient denies any discharge needs at this time. Patient states he will have his drive him home upon discharge. CM will continue to follow and assist as needed with discharge planning / needs. Injection Maintenance Technician: Lisa Espinosa DCPIA - Discharge Planning Initial Assessment Updated by [email or web address]: Lisa Espinosa on 06/16/18 4:55 pm * Is the patient Alert and Oriented? Yes * How many steps to enter\exit or inside your home? 02/27 * PCP RENAN * Pharmacy [facility] * Preadmission Environment Home with Family * ADLs Independent * Equipment None * List name and contact numbers for known caregivers / representatives who currently or will assist patient after discharge: KRYSTAL ZENG - SPOUSE- [phone], [phone] * Verbal permission to speak to the caregivers and representatives has been obtained from the patient. No * Community resources currently utilized None * Additional services required to return to the preadmission environment? No * Can the patient safely return to the preadmission environment? Yes * Has this patient been hospitalized within the prior 30 days at any hospital? No Last DP export: 06/16/18 3:54 pm Patient Name: SAÚL ZENG Page 76734 at 1703 All edits/amendments must be made on the electronic document DICTATION DATE: 06/16/181702 SERVICES ENGINEER: MACEY 06/16/181702 RPT#: [id number] DC DATE: STATUS: ADM IN [facility] [address] [place] [address] END OF REPORT
[2018-06-16 21:03] LABS: HEMATOCRIT 30.7 % (42.0-54.0); HEMOGLOBIN 10.6 g/dL (13.5-17.5)
[2018-06-17 03:00] VITALS: BP 118/67
[2018-06-17 04:30] LABS: BASOPHILS 0.2 % (0-2); EOSINOPHILS 4.7 % (0-7); HEMATOCRIT 30.7 % (42.0-54.0); HEMOGLOBIN 10.5 g/dL (13.5-17.5); IMMATURE GRANULOCYTES 0.4 % (0-5); MCH 31.8 pg (26.0-34.0); MCHC 34.2 g/dL (31.0-37.0); MEAN PLATELET VOLUME 8.8 fL (7.4-10.4); MONOCYTES 13.8 % (2-11); NEUTROPHILS 62.9 % (40-80); PLATELET COUNT 141 10x3/uL (130-400); RDW 17.9 % (11.5-14.5); WBC 4.7 10x3/uL (4.8-10.8)
[2018-06-17 06:05] LABS: CALC OSMOLALITY 280 mosm/kg (275-300); CALCIUM 8.6 mg/dL (8.5-10.1); CARBON DIOXIDE 25.9 mmol/L (21.0-32.0); CHLORIDE - SERUM 103 mmol/L (98-107); CREATININE - SERUM 0.9 mg/dL (0.6-1.3); GLUCOSE 88 mg/dL (74-106); POTASSIUM - SERUM 3.8 mmol/L (3.5-5.1); SODIUM 139 mmol/L (136-145); eGFR NON AFRICAN AMERICAN 89 mL/min (90-120)
[2018-06-17 06:07] LABS: UREA NITROGEN 25 mg/dL (7-18)
[2018-06-17 07:00] VITALS: BP 136/98
[2018-06-17 12:00] VITALS: BP 120/67
[2018-06-17] MEDS ORDERED: PROTONIX40 MG PO (15:05)
--- NOTE | 2018-06-18 16:32 | MORECARE ---
CASE MANAGEMENT DISCHARGE SUMMARY PATIENT: SAÚL ZENG UNIT: [id number] ADM DATE: 06/15/18 AGE: 68 : 50 SEX: M ROOM/BED: D.2301 AUTHOR: SUMIT BARKLEY PHYSICIAN: REFERRING PHYSICIAN: ESCOBAR URRUTIA MD DATE OF SERVICE: 06/18/18 Discharge Plan Patient Name: SAÚL ZENG Facility: [facility]:[place] : 1950 Planned Disposition: Home Anticipated Discharge Date: Discharge Date: 06/17/2018 Expected LOS: Initial Reviewer: [email or web address] Initial Review Date: 06/16/2018 Generated: 06/18/18 5:32 pm Comments DCP- Discharge Planning Updated by [email or web address]: Lisa Espinosa on 06/16/18 3:[address] Patient Name: SAÚL ZENG Admission Status: ER Accout number: [id number] Admission Date: 06-15-2018 : 1950 Admission Diagnosis: Attending: ESCOBAR URRUTIA Current LOS: 1 Anticipated DC Date: Planned Disposition: Home Primary Insurance: [email or web address] POS Discharge Planning Comments: CM met with patient and spouse (Krystal) at bedside after explaining CM role and obtaining verbal consent. Patient lives at home with his Krystal and plans to return there upon discharge. Patient feels this would be a safe discharge. CM discussed availability / needs of home health and medical equipment. Patient denies any discharge needs at this time. Patient states he will have his drive him home upon discharge. CM will continue to follow and assist as needed with discharge planning / needs. Hospital Insurance Clerk: Lisa Espinosa DCPIA - Discharge Planning Initial Assessment Updated by [email or web address]: Lisa Espinosa on 06/16/18 4:55 pm * Is the patient Alert and Oriented? Yes * How many steps to enter\exit or inside your home? 02/27 * PCP RENAN * Pharmacy [facility] * Preadmission Environment Home with Family * ADLs Independent * Equipment None * List name and contact numbers for known caregivers / representatives who currently or will assist patient after discharge: KRYSTAL ZENG - SPOUSE- [phone], [phone] * Verbal permission to speak to the caregivers and representatives has been obtained from the patient. No * Community resources currently utilized None * Additional services required to return to the preadmission environment? No * Can the patient safely return to the preadmission environment? Yes * Has this patient been hospitalized within the prior 30 days at any hospital? No Last DP export: 06/16/18 4:03 pm Patient Name: SAÚL ZENG Page 36353 at 1632 All edits/amendments must be made on the electronic document DICTATION DATE: 06/18/181631 EARLY LEARNING TEACHER: MACEY 06/18/181631 RPT#: [id number] DC DATE:06/17/18 STATUS: DIS IN [facility] [address] [place] [address] END OF REPORT
== END 2018-06-17 15:16 | disposition home or self-care (01) | DRG 378 ==
LOC: D.ER 10:08 → D.EDHOLD 12:54 → D.ICU 12:54
PROVIDERS: Family Medicine; ADMIT Family Medicine; ATTEND Family Medicine
DX: K92.1 Melena (principal); D62 Acute posthemorrhagic anemia; E78.5 Hyperlipidemia, unspecified; I10 Essential (primary) hypertension; E03.9 Hypothyroidism, unspecified; I48.0 Paroxysmal atrial fibrillation; I25.10 Atherosclerotic heart disease of native coronary artery without angina pectoris; Z85.46 Personal history of malignant neoplasm of prostate; Z79.01 Long term (current) use of anticoagulants; R55 Syncope and collapse

== ENCOUNTER 2019-02-16 05:29 | Day surgery (SDC) | payer BC ==
[~2019-02-16] VITALS: Ht 180.3 cm; Wt 108.9 kg
--- NOTE | ~2019-02-16 | OP ---
PATIENT NAME: SAÚL ZENG MEDICAL RECORD: [id number] :50 LOCATION:D.OPS ADMISSION DATE: SURGEON: DRISS BYNUM MD DATE OF OPERATION: 02/16/2019 PREOPERATIVE DIAGNOSES: 1. Soft tissue mass of the left flank, large. 2. History of gastric lymphoma in need of surveillance gastric biopsies. PROCEDURE: 1. Excision of large intramuscular left flank lipoma. The lipoma measured 9 x 9 cm and was not fixed. 2. Esophagogastroduodenoscopy with random gastric biopsies as well as distal esophageal biopsies to rule out Blair's. SURGEON: Driss Bynum MD GROUT WORKER: None. BLOOD LOSS: Less than 100 cc. ANESTHESIA: General. COMPLICATIONS: None. The risks, possible complications and alternatives to the procedure were explained to the patient. He elects to proceed. The discussion specifically included, but was not limited to, bleeding requiring emergency reoperation, infection, as well as the probable need for surveillance upper endoscopies in the future and the possibility that the mass could represent a liposarcoma. It is a large mass and it has grown quickly. I told the patient after the operation that due the fact that it was an intramuscular lipoma of the risk of it representing a liposarcoma is significant. OPERATIVE COURSE: The patient was conveyed the operating room electively on 02/16/2019. General anesthesia was induced by the anesthesia staff. The patient was placed in the lateral decubitus position with the left side up. The left flank was sterilely prepped and draped. A transverse incision was accomplished. I dissected down through skin and subcutaneous tissues. I utilized a muscle spreading technique and I spread the muscles without cutting them. I then performed an intramuscular dissection. The mass was located between the flank musculature as well as the ribs. It was removed in a piecemeal fashion. Some surrounding connective tissue was excised as well in order to help prevent a recurrence of the lipoma. Meticulous hemostasis was achieved with electrocautery. There appeared to have been no injury to any intraabdominal, retroperitoneal, or thoracic structures. Muscle was closed with multiple interrupted horizontal mattress #1 Vicryls. The adipose tissue was closed with interrupted 3-0 Vicryls. The subdermis was approximated with interrupted 3-0 Vicryls. The skin was approximated with a running intracuticular 3-0 Vicryl. A sterile dressing was applied. The patient was then positioned supine. A bite block was inserted. A gastroscope was inserted into the mouth. It was advanced easily into the OPERATIVE REPORT [id number] SAÚL ZENG hypopharynx. The esophagus was easily intubated as were the stomach and duodenum. Upon withdrawal, retroflexed and angulus views were obtained. Multiple gastric biopsies were obtained throughout the stomach. I noted no definite evidence of a recurrent lymphoma. I then withdrew into the distal esophagus. There was some tissue there that was equivocal for Blair esophagus. This was biopsied utilizing the cold endoscopic biopsy forceps. The endoscope was then withdrawn under direct vision. The patient was then extubated and conveyed to post-anesthesia care unit where he was in stable condition. I will see him in the office in 2-3 weeks. He is being dismissed home on a narcotic analgesic. TRANSINT:[id number] Voice Confirmation ID: [id number] DOCUMENT ID: [id number] DRISS BYNUM MD CC: JOSE JESUS MD [id number] DICTATION DATE: 02/16/191902 CHEMICAL PROCESS ENGINEER: 02/17/19 0347 [facility] 02/16/19 [facility] [address] [place] [address]
[~2019-02-16 05:29] MED LIST changes: +ASPIRIN EC325 M1 PO; +COREG12.5 MG PO; +COREG6.25 MG PO; +CYCLOBENZAPRINE10 MG PO; +FERROUS SULFAT325 MG PO; +FLUTICASONE PRO16 GM NASAL; +LIPITOR40 MG PO; +MYRBETRIQ25 MG PO; +PREVALITE POWD231 GM PO; +ZESTRIL10 MG PO; +ZYLOPRIM100 MG PO
[2019-02-16 07:08] VITALS: BP 145/87; Ht 180.3 cm; Wt 108.9 kg
[2019-02-16 07:41] LABS: HEMATOCRIT 39.4 % (42.0-54.0); HEMOGLOBIN 13.2 g/dL (13.5-17.5); MCH 35.4 pg (26.0-34.0); MCHC 33.5 g/dL (31.0-37.0); MCV 105.6 fL (80.0-100.0); MEAN PLATELET VOLUME 9.5 fL (7.4-10.4); RBC 3.73 10x6/uL (4.20-6.10); RDW 12.5 % (11.5-14.5); WBC 4.3 10x3/uL (4.8-10.8)
--- NOTE | 2019-02-16 13:23 | NUR ---
PT IV REMOVED AT THIS TIME, ITACT, NO REDNESS OR SWELLING NOTED AT SITE. PT DC INSTRUCTIONS REVIEWED AT THIS TIME, PT VERBALIZES UNDERSTANDING.
--- NOTE | 2019-02-16 13:35 | NUR ---
PT LEAVING OPS AT THIS TIME, VIA WC, NAD NOTED.
--- NOTE | 2019-02-17 09:26 | NUR ---
CHARTING DONE ON PAPER AND PLACED IN CHART DUE TO [facility] UNABLE TO OPEN HOSPITAL WIDE. REPORTED TO CHARGE NURSE.
== END 2019-02-16 13:35 | disposition home or self-care (01) ==
LOC: D.OPS 05:29
PROVIDERS: Anesthesiology; ATTEND Surgery
DX: R22.2 Localized swelling, mass and lump, trunk (principal); Z85.72 Personal history of non-Hodgkin lymphomas

== ENCOUNTER 2019-07-19 05:49 | Day surgery (SDC) | payer BC ==
[~2019-07-19] VITALS: Ht 180.3 cm; Wt 106.8 kg
[2019-07-19 06:38] LABS: HEMATOCRIT 36.7 % (42.0-54.0); HEMOGLOBIN 11.9 g/dL (13.5-17.5); MCH 35.2 pg (26.0-34.0); MCHC 32.4 g/dL (31.0-37.0); MCV 108.6 fL (80.0-100.0); MEAN PLATELET VOLUME 9.2 fL (7.4-10.4); RBC 3.38 10x6/uL (4.20-6.10); RDW 12.9 % (11.5-14.5); WBC 3.3 10x3/uL (4.8-10.8)
[2019-07-19 06:42] LABS: PROTIME 13.2 SECONDS (11.6-15.0)
[2019-07-19 06:45] LABS: CALCIUM 8.9 mg/dL (8.5-10.1); CARBON DIOXIDE 21.4 mmol/L (21.0-32.0); CREATININE - SERUM 1.3 mg/dL (0.6-1.3); POTASSIUM - SERUM 4.4 mmol/L (3.5-5.1)
[2019-07-19 07:01] VITALS: BP 125/78; Ht 180.3 cm; Wt 106.8 kg
--- NOTE | 2019-07-19 10:33 | NUR ---
1019 PT UP TO BR WITH ASSISTANCE TO VOID
--- NOTE | 2019-07-19 12:35 | NUR ---
1043 IV DC'D. CATHETER TIP INTACT. NO BLEEDING AT SITE. BANDAID APPLIED.
--- NOTE | 2019-07-19 15:43 | HP ---
PATIENT: SAÚL ZENG MEDICAL RECORD: [id number] ACCOUNT: [id number] LOCATION:D.[facility] : [birth year] ADMISSION DATE: 07/19/19 PCP: ESCOBAR URRUTIA MD HISTORY AND PHYSICAL EXAMINATION CHIEF COMPLAINT: Needs EGD with biopsies. HISTORY OF PRESENT ILLNESS: There is some urgency to this as the patient has had a history of GIST tumor and needs to undergo surveillance upper endoscopies with biopsies about every 6 months. A delay in performing these biopsies could delay his treatment if the MALT lymphoma recurs. The patient had a hematoma at the site of a lipoma excision in the left flank. The hematoma has resolved and therefore does not need to be aspirated. ALLERGIES: No known drug allergies. HOME MEDICATIONS: Please see the nursing list. SOCIAL HISTORY: Nonsmoker. Alcohol use, drinks some wine, but not in excess. PAST MEDICAL AND SURGICAL HISTORY: Coronary artery disease; history of cardiac ablation for AFib; hypertension; history of CABG times 2; hypothyroidism, on replacement therapy; history of prostatectomy; history of gallbladder surgery. REVIEW OF SYSTEMS: No hematemesis. No abdominal pain. No melena. PHYSICAL EXAMINATION: GENERAL: The patient does not appear acutely ill. He does not appear chronically ill. VITAL SIGNS: Reviewed. EARS: External ears appear normal. EYES: Extraocular movements are intact. NECK: Trachea is midline. CHEST: No intercostal retractions. PULMONARY: Nonlabored. No stridor. IMPRESSION: History of mucosa-associated lymphoid tissue (MALT) lymphoma. PLAN: EGD with biopsies. TRANSINT:[id number] Voice Confirmation ID: [id number] DOCUMENT ID: [id number] JORGE BYNUM MD at 1543 CC: JOSE JESUS MD, ESCOBAR URRUTIA MD and EDDA WILLIAMSON [phone] DICTATION DATE: 07/19/19 0925 FLEET SALESPERSON: 07/19/19 1018 [facility] 07/19/19 [facility] [address] [place] [id number]
--- NOTE | 2019-07-19 15:43 | OP ---
PATIENT NAME: SAÚL ZENG MEDICAL RECORD: [id number] :50 LOCATION:D.[facility] ADMISSION DATE: SURGEON: JORGE BYNUM MD DATE OF OPERATION: 07/19/2019 PREOPERATIVE DIAGNOSIS: History of MALT lymphoma, in need of surveillance. POSTOPERATIVE DIAGNOSES: 1. History of MALT lymphoma, in need of surveillance. 2. Prepyloric gastritis, mild. PROCEDURE: Esophagogastroduodenoscopy with multiple random gastric biopsies and also distal esophageal biopsies to rule out Blair's esophagus. SURGEON: Jorge Bynum MD HAND CIGAR MAKING SUPERVISOR: None. BLOOD LOSS: Minimal. ANESTHESIA: IV sedation. COMPLICATIONS: None. The risks, possible complications and alternatives to the procedure were explained to the patient. He elects to proceed. The discussion specifically included, but was not limited to, bleeding requiring emergency reoperation, possible need for additional procedures, endoscopic perforation. ENDOSCOPIC COURSE: The patient was conveyed to endoscopy suite electively on 07/19/2019, IV sedation was induced by the anesthesia staff. A bite block was inserted. A gastroscope was inserted into the mouth. It was advanced easily into the hypopharynx. The esophagus was easily intubated as were the stomach and duodenum. Upon withdrawal, retroflexed and angulus views were obtained and multiple random gastric biopsies were obtained. I saw no gross evidence of MALT lymphoma. I then withdrew into the distal esophagus. Distal esophageal biopsies were obtained to rule out Blair esophagus. The endoscope was then withdrawn under direct vision. I will see the patient back in my office in 2-3 weeks to review the results of the biopsies. Additionally, I will plan for his next surveillance upper endoscopy with biopsies to take place in 6 months. TRANSINT:[id number] Voice Confirmation ID: [id number] DOCUMENT ID: [id number] JORGE BYNUM MD at 1543 CC: JOSE JESUS MD and ESCOBAR URRUTIA MD [id number] DICTATION DATE: 07/19/19 1011 LINEMARKER: 07/19/19 1258 [facility] 07/19/19 [facility] [address] [place] [address]
== END 2019-07-19 10:58 | disposition home or self-care (01) ==
LOC: D.OPS 05:49
PROVIDERS: Anesthesiology; ATTEND Surgery
DX: Z85.72 Personal history of non-Hodgkin lymphomas (principal); K29.60 Other gastritis without bleeding; I10 Essential (primary) hypertension; E03.9 Hypothyroidism, unspecified

== ENCOUNTER 2020-07-03 05:10 | Day surgery (SDC) | payer BC ==
[~2020-07-03] VITALS: Ht 180.3 cm; Wt 110.5 kg
[2020-07-03 05:32] LABS: HEMOGLOBIN 12.5 g/dL (13.5-17.5); LYMPHOCYTE ABS# 0.74 10x3/uL (1.32-3.57); MCH 35.5 pg (26.0-34.0); MCHC 33.8 g/dL (31.0-37.0); MCV 105.1 fL (80.0-100.0); MEAN PLATELET VOLUME 9.5 fL (7.4-10.4); NEUTROPHIL ABS# 2.02 10x3/uL (1.78-5.38); PLATELET COUNT 142 10x3/uL (130-400); RBC 3.52 10x6/uL (4.20-6.10); RDW 12.6 % (11.5-14.5); WBC 3.7 10x3/uL (4.8-10.8)
[2020-07-03 05:52] LABS: ANION GAP 14.2 mmol/L (8-16); CALCIUM 9.5 mg/dL (8.5-10.1); CARBON DIOXIDE 28.2 mmol/L (21.0-32.0); CREATININE - SERUM 1.2 mg/dL (0.6-1.3); POTASSIUM - SERUM 4.4 mmol/L (3.5-5.1)
[2020-07-03] MEDS ORDERED: TROSPIUM CHLORI20 MG PO (06:24)
[2020-07-03] MEDS ORDERED: COREG6.25 MG PO (06:26)
[2020-07-03] MEDS ORDERED: VOLTAREN100 GM TOPICAL (06:29)
[2020-07-03] MEDS ORDERED: IPRATROPIUM BRO15 M1 NASAL (06:31)
[2020-07-03] MEDS ORDERED: GALZIN25 MG PO (06:32)
[2020-07-03] MEDS ORDERED: FERROUS SULFAT325 MG PO (06:35)
[2020-07-03] MEDS ORDERED: VITAMIN D325 MC1 PO (06:36)
[2020-07-03] MEDS ORDERED: METAMUCIL PO (06:37)
[2020-07-03] MEDS ORDERED: METROGEL 0.75 %45 GM TOPICAL (06:38)
[2020-07-03] MEDS ORDERED: MYLANTA / MAALO30 ML (06:40)
[2020-07-03] MEDS ORDERED: [UNRECOGNIZED DRUG - OTHER] (06:41)
[2020-07-03 07:10] VITALS: Ht 180.3 cm; Wt 110.5 kg
--- NOTE | 2020-07-03 12:44 | NUR ---
1007 PROVIDED WITH D/C INFORMATION INCLUDING MED REC., RTC APPT., SHEET LISTING NSAIDS TO HOLD X'S 10 DAYS, & [facility] D/C INSTRUCTIONS. PT VOICED UNDERSTANDING. TO PRIVATE CAR PER WHEELCHAIR BY STAFF. HOME WITH MORTAR MIXER OPERATOR, MUMTAZ WAGNER. Arlette MENJIVAR R.N.
[2020-07-03 13:18] LABS: LYMPHOCYTES 21 % (15-50); MONOCYTES 18 % (2-11); NEUTROPHILS 61 % (40-80); PLATELET ESTIMATE NORMAL
--- NOTE | 2020-07-03 14:52 | OP ---
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 PROCEDURE: 1. Esophagogastroduodenoscopy with numerous random gastric biopsies. 2. Biopsies of the EG junction. DESCRIPTION OF PROCEDURE: The patient was conveyed to the endoscopy suite electively on 07/03/2020. IV sedation was induced by the anesthesia staff. A bite block was inserted. A gastroscope was inserted into the mouth. It was advanced easily into the hypopharynx. The esophagus was easily intubated as were the stomach and duodenum. Upon withdrawal, retroflexed and angulus views were obtained. Numerous random gastric biopsies were obtained. I then withdrew into the esophagus. Distal esophageal biopsies were obtained to rule out Blair's esophagus. I then slowly withdrew the endoscope. I will plan for his next surveillance upper endoscopy with biopsies to take place in 1 year. I will discuss this with Dr. Jesus as well. TRANSINT:[id number] Voice Confirmation ID: [id number] DOCUMENT ID: [id number] JORGE BYNUM MD at 1452 CC: JOSE JESUS MD, ESCOBAR URRUTIA MD and EDDA WILLIAMSON [id number] DICTATION DATE: 07/03/20916 LEAD INSTRUCTOR/FLIGHT ATTENDANT: 07/03/20 0940 [facility] 07/03/[address] [address]
== END 2020-07-03 10:07 | disposition home or self-care (01) ==
LOC: D.OPS 05:10
PROVIDERS: Anesthesiology; ATTEND Surgery
DX: K21.9 Gastro-esophageal reflux disease without esophagitis (principal); K22.8 Other specified diseases of esophagus; K29.60 Other gastritis without bleeding; Z85.72 Personal history of non-Hodgkin lymphomas; E78.5 Hyperlipidemia, unspecified; I10 Essential (primary) hypertension